=== PATIENT | male | born 1950 | race African-American/Black ===

== ENCOUNTER 2019-07-15 09:29 | Inpatient (IN) | payer OTHER ==
[2019-07-15 10:18] VITALS: BMI 39.7
[2019-07-15] MEDS ORDERED: D50W 25 GM/50 ML SYRINGE IV PRN (10:18)
[2019-07-15] MEDS ORDERED: GLUCAGON 1 MG/VIAL IM PRN (10:18)
[2019-07-15 10:56] LABS: Absolute Lymphocytes (CBC) 1.4 K/uL (0.7-4.9); Basophils % 1.2 % (0-1.3); Hematocrit 36.4 % (39.6-49.0); Lymphocytes % 23.8 % (15.3-44.8); RBC Red Blood Cell Count 4.54 M/uL (4.33-5.43)
[2019-07-15] MEDS ORDERED: VANCOMYCIN 2 GM in NA CHLORIDE 0.9% 500 ML IVPB ONE (11:00)
[2019-07-15 11:02] LABS: Urine Appearance CLEAR; Urine Bilirubin NEGATIVE (NEG); Urine Blood NEGATIVE (NEG); Urine Color YELLOW; Urine Glucose NEGATIVE (NEG); Urine Protein NEGATIVE (NEG); Urine Specific Gravity 1.015 (1.005-1.030); Urine pH 7.5 (5.0-7.0)
[2019-07-15 11:11] LABS: Albumin 3.6 g/dL (3.4-5.0); Bilirubin Total 0.6 mg/dL (0.2-1.0); Potassium 3.8 mmol/L (3.5-5.1); Protein, Total 7.4 g/dL (6.4-8.2)
[2019-07-15] MEDS: INSULIN -REGULAR HUMAN 50 UNIT/0.5 ML ML SQ SCH ×3 (11:16→21:00)
[2019-07-15 11:50] LABS: Urine Bacteria NONE SEEN /HPF (NONE SEEN); Urine Culture Reflex Order NOT NEEDED; Urine RBC NONE SEEN /HPF (NONE SEEN)
[2019-07-16] MEDS: VANCOMYCIN 2 GM in NA CHLORIDE 0.9% 500 ML IVPB SCH ×2 (04:04→23:12)
[2019-07-16] MEDS: INSULIN -REGULAR HUMAN 50 UNIT/0.5 ML ML SQ SCH ×4 (07:30→20:19)
[2019-07-16] MEDS: hydroCHLOROthiazide 25 MG TAB PO SCH (08:55)
[2019-07-16] MEDS: METFORMIN HCL 500 MG TAB PO SCH ×2 (08:56→16:52)
[2019-07-16] MEDS: AMLODIPINE 10 MG TAB PO SCH (08:56)
[2019-07-16] MEDS: VALSARTAN 160 MG TAB PO SCH (08:56)
[2019-07-16] MEDS: ENOXAPARIN 30 MG/0.3 ML SQ SCH (08:57)
[2019-07-16] MEDS ORDERED: HOME MED 1 EA UNK (Valsartan/Hydrochlorothiazide [Valsartan-Hctz 320-25 Mg Tab] 1 TAB) PO SCH (09:00)
--- NOTE | 2019-07-16 19:18 | HP ---
Date of Admission: 07/15/2019 Chief Complaint: Cellulitis, leg. History Of Present Illness: A 69-year-old male was seen last week in the office for cellulitis of th e leg. He was given oral antibiotic in the form of Bactrim. He returned few days later with continu ed pain. He was found to have extended cellulitis. In view of failure of oral antibiotic, patient w as advised IV antibiotics; however, he refused. However, he returned on the day of admission and cou ld not walk from parking lot to the office because of the pain and swelling. I examined him in the [employer] lot and he was found to have continued swelling and redness of the leg. At this point, patien t decided to get admitted and get IV antibiotic therapy. There is no history of injury to the leg. Past Medical History: Positive for type 2 diabetes, hypertension, osteoarthritis. Family History: Diabetes, hypertension present. Allergies: NONE. Personal History: Nonsmoker. Home Medicines: Amlodipine, glimepiride, Avapro, metformin, Zocor, Hytrin. Review of Systems: Patient denied any chest pain or shortness of breath. Physical Examination: General: Revealed 69-year-old male. Alert for his age. HEENT: Otherwise negative. Neck: Supple. JVD negative. Chest: Clear. Heart: Regular. Abdomen: Soft. Extremities: Diffuse swelling of the left leg starting from the ankle to the knee with redness and w armth. Pedal pulses decreased but present. Assessment: 1.Cellulitis, not responsive to oral antibiotics. 2.Type 2 diabetes. 3.Hypertension. 4.Hyperlipidemia. 5.Osteoarthritis. Plan: IV vancomycin after blood cultures and routine blood work. ROD/ILENE Voice ID: [id number]
[2019-07-16] MEDS ORDERED: ATORVASTATIN 20 MG TAB PO SCH (21:00)
[2019-07-17] MEDS: VALSARTAN 160 MG TAB PO SCH (09:31)
[2019-07-17] MEDS: hydroCHLOROthiazide 25 MG TAB PO SCH (09:31)
[2019-07-17] MEDS: ENOXAPARIN 30 MG/0.3 ML SQ SCH (09:32)
[2019-07-17] MEDS: AMLODIPINE 10 MG TAB PO SCH (09:32)
[2019-07-17] MEDS: METFORMIN HCL 500 MG TAB PO SCH ×2 (09:32→16:50)
[2019-07-17] MEDS: INSULIN -REGULAR HUMAN 50 UNIT/0.5 ML ML SQ SCH ×3 (09:33→16:30)
[2019-07-17 15:47] VITALS: O2SAT 94
[2019-07-17] MEDS: VANCOMYCIN 2 GM in NA CHLORIDE 0.9% 500 ML IVPB SCH (16:50)
[2019-07-17 18:11] VITALS: BP 170/93; TEMP 97.6
== END 2019-07-17 20:10 | disposition home or self-care (01) | DRG 603 ==
LOC: ERHOLD 09:29 → UNDOADMIN 09:29 → 2ND 09:37
PROVIDERS: ADMIT Internal Medicine; ATTEND Internal Medicine
DX: L03.116 Cellulitis of left lower limb (principal); E11.9 Type 2 diabetes mellitus without complications; I10 Essential (primary) hypertension; E78.5 Hyperlipidemia, unspecified; M19.90 Unspecified osteoarthritis, unspecified site
CPT/HCPCS: 36415; 80053; 80202; 81001; 82962; 85025; 87040; J1650; J7040

== ENCOUNTER 2019-09-16 12:00 | Inpatient (IN) | payer OTHER ==
[2019-09-16] MEDS ORDERED: FUROSEMIDE 20 MG/ 2ML VIAL IV ONE (13:01)
[2019-09-16] MEDS ORDERED: FUROSEMIDE 20 MG/ 2ML VIAL ONE (13:26)
[2019-09-16 13:46] LABS: Basophils % 1.2 % (0-1.3); Hematocrit 33.1 % (39.6-49.0); Lymphocytes % 16.1 % (15.3-44.8); MPV 7.9 fL (7.6-11.3); RBC Red Blood Cell Count 4.22 M/uL (4.33-5.43)
--- NOTE | 2019-09-16 14:04 | EKG ---
Test Date: 2019-09-16 Test Time: 12:53:32 Cream Dipper: DUTCH MEASUREMENT RESULTS: Intervals: Rate: 91 DC: 136 QRSD: 134 QT: 398 QTc: 489 Halliday: P: 75 DC: 136 QRS: 10 T: 74 INTERPRETIVE STATEMENTS: Normal sinus rhythm Right bundle branch block Abnormal ECG No previous ECG available for comparison Electronically Signed On 09-16-19 14:03:56 DUMP MOTORMAN by Perry Hughes
[2019-09-16 14:53] LABS: ALT/SGPT 39 U/L (12-78); AST/SGOT 21 U/L (15-37); Albumin 3.2 g/dL (3.4-5.0); Alkaline Phosphatase 86 U/L (45-117); BUN Blood Urea Nitrogen 12 mg/dL (7-18); Bicarbonate 35 mmol/L (21-32); Bilirubin Total 0.5 mg/dL (0.2-1.0); Glucose Level 80 mg/dL (74-106); NT PRO-BNP 261 pg/mL (<125); Potassium 3.6 mmol/L (3.5-5.1); Protein, Total 6.8 g/dL (6.4-8.2); Sodium Level 144 mmol/L (136-145)
--- NOTE | 2019-09-16 15:20 | RAD REPORT ---
EXAM DESCRIPTION: RAD - Chest Pa And Lat (2 Views) - 09/16/2019 2:52 pm CLINICAL HISTORY: CHF Chest pain. COMPARISON: No comparisons FINDINGS: Moderate bilateral pulmonary opacities are present with bilateral pleural effusions, most compatible with pulmonary edema. The heart is mildly to moderately enlarged. No displaced fractures. IMPRESSION: Moderate CHF versus volume overload pattern.
--- NOTE | 2019-09-16 16:05 | ER ---
Nurse's Notes [facility] Name: Iam Lucio Jr Age: 69 yrs Sex: Male : 1950 Arrival Date: 09/16/2019 Time: 12:02 Bed Direct Admit Private MD: Giancarlo Segundo R Diagnosis: Heart failure Presentation: 09/16 12:29 Presenting complaint: Patient states: "If I walk about 10 feet I get out of breath real aj1 quick, it started about 5 or 6 days ago" Denies pain. Denies increased swelling to extremities. Patient was sent for direct admission by Dr. Segundo. Transition of care: patient was not received from another setting of care. Onset of symptoms was 2018. Risk Assessment: Do you want to hurt yourself or someone else? Patient reports no desire to harm self or others. Initial Sepsis Screen: Does the patient meet any 2 criteria? HR > 90 bpm. No. Patient's initial sepsis screen is negative. Does the patient have a suspected source of infection? Yes: Productive cough/pneumonia. Care prior to arrival: None. 12:29 Method Of Arrival: Wheelchair aj1 12:29 Acuity: AMELIA 2 aj1 Triage Assessment: 12:31 General: Appears in no apparent distress. uncomfortable, Behavior is calm, cooperative, aj1 appropriate for age. Pain: Denies pain. Neuro: Level of Consciousness is awake, alert, obeys commands. Cardiovascular: Patient's skin is warm and dry. Respiratory: Reports shortness of breath on exertion Airway is patent Respiratory effort is even, unlabored, Respiratory pattern is regular, symmetrical. Historical: - Allergies: 12:31 No Known Allergies; aj1 - PMHx: 12:31 Diabetes - NIDDM; Hypertension; aj1 - Social history:: Smoking status: Patient uses tobacco products, denies chronic smoking, but will smoke occasionally. - Ebola Screening: : Patient denies travel to an Ebola-affected area in the 21 days before illness onset. Vital Signs: 12:31 BP 150 / 82; Pulse 96; Resp 20; Temp 98.8; Pulse Ox 86% on R/A; Weight 118.39 kg (R); aj1 Height 5 ft. 7 in. (170.18 cm) (R); Pain 0/10; 12:31 Body Mass Index 40.88 (118.39 kg, 170.18 cm) aj1 ED Course: 12:02 Patient arrived in ED. as 12:04 Giancarlo Segundo MD is Private Physician. as 12:30 Triage completed. aj1 12:31 Arm band placed on Patient placed in an exam room. aj1 12:59 EKG done, by i&c technician. reviewed by Jerrod Tompkins MD. tc 14:28 Moon Roberts, RN is Primary Nurse. vc 16:03 Giancarlo Segundo MD is Hospitalizing Provider. ss Administered Medications: No medications were administered Outcome: 16:05 Decision to Hospitalize by Provider. ss 17:36 Patient left the ED. vc Signatures: Mariana Martin, RN RN aj1 Hilda Ferguson Shelby, GUS RN Lolis Gavin, disc pad grinder EKG Ttc Moon Roberts, GUS RN vc
[2019-09-16 16:44] LABS: Urine Blood NEGATIVE (NEG); Urine Glucose NEGATIVE (NEG); Urine Protein 1+ (NEG); Urine pH 5.5 (5.0-7.0)
[2019-09-16] MEDS ORDERED: D50W 25 GM/50 ML SYRINGE/VIAL IV PRN (18:46)
[2019-09-16] MEDS ORDERED: GLUCAGON 1 MG/VIAL IM PRN (18:46)
[2019-09-16] MEDS: INSULIN -REGULAR HUMAN 50 UNIT/0.5 ML ML SQ SCH (20:51)
[2019-09-16] MEDS: TERAZOSIN HCL 5 MG CAP PO SCH (21:52)
[2019-09-16] MEDS: HYDRALAZINE HCL 25 MG TABLET PO SCH (21:52)
[2019-09-16] MEDS: ATORVASTATIN 20 MG TAB PO SCH (21:52)
[2019-09-16] MEDS ORDERED: FUROSEMIDE 40 MG/4 ML VIAL IV STA (21:59)
[2019-09-17] MEDS ORDERED: ALBUTEROL 2.5 MG/3 ML NEB SOL NEB ONE (01:56)
[2019-09-17] MEDS ORDERED: ALBUTEROL 2.5 MG/3 ML NEB SOL ONE (02:07)
[2019-09-17] MEDS: INSULIN -REGULAR HUMAN 50 UNIT/0.5 ML ML SQ SCH ×4 (07:30→21:00)
[2019-09-17 08:06] LABS: Absolute Lymphocytes (CBC) 0.5 K/uL (0.7-4.9); Basophils % 0.4 % (0-1.3); Hematocrit 35.6 % (39.6-49.0); Lymphocytes % 5.5 % (15.3-44.8); MPV 7.6 fL (7.6-11.3)
[2019-09-17 08:19] LABS: BUN Blood Urea Nitrogen 15 mg/dL (7-18); Bicarbonate 39 mmol/L (21-32); Glucose Level 157 mg/dL (74-106); Potassium 3.8 mmol/L (3.5-5.1); Sodium Level 145 mmol/L (136-145)
--- NOTE | 2019-09-17 08:39 | P.CNS ---
Date of Consult: 09/17/19 Reason for Consult: Respiratory failure Chief Complaint: Shortness of breath History of Present Illness: Patient is [age] years of age admitted with shortness of breath which the preceding four days. The is currently on a BiPAP. History obatained from . At bedside. Pt hypercapneic. Poss underlying [place]. EDs and snoring. No cardiac history the patient was transferred from the floor got some Lasix Allergies No Known Allergies Allergy (Unverified 07/15/19 09:55) Home Medications: Amlodipine [Norvasc] 10 mg PO DAILY 09/16/19 Furosemide [Lasix] 20 mg PO DAILY 09/16/19 Glimepiride [Amaryl] 2 mg PO TID 09/16/19 Hydralazine [Apresoline] 25 mg PO BID 09/16/19 Irbesartan [Avapro] 300 mg PO DAILY 09/16/19 Metformin ER [Glucophage ER] 1,000 mg PO BID 09/16/19 Simvastatin 40 mg PO BEDTIME 09/16/19 Terazosin HCl 5 mg PO BEDTIME 09/16/19 - Past Medical/Surgical History Diabetic: Yes -: Hypertension -: NIDDM - Social History Smoking Status: Current some day smoker Alcohol use: No CD- Drugs: No Caffeine use: Yes Place of Residence: Home Review of Systems is unable to be obtained Physical Examination Temp Pulse Resp BP Pulse Ox 99.2 F 101 H 38 H 144/70 H 91 09/17/19 05:00 09/17/19 06:00 09/17/19 06:00 09/17/19 06:00 09/17/19 06:00 General: Unresponsive Respiratory: Expiratory wheezes Cardiovascular: Normal S1 S2, Edema Gastrointestinal: Normal bowel sounds, Soft and benign Musculoskeletal: No clubbing Laboratory Data (last 24 hrs) 09/17/19 07:45: Sodium 145, Potassium 3.8, BUN 15, Creatinine 0.90, Glucose 157 H 09/17/19 07:45: WBC 9.8 D, Hgb 11.0 L, Hct 35.6 L, Plt Count 306 09/16/19 14:12: Troponin I < 0.02 09/16/19 14:12: Sodium 144, Potassium 3.6, BUN 12, Creatinine 0.84, Glucose 80, Total Bilirubin 0.5, AST 21, ALT 39, Alkaline Phosphatase 86 09/16/19 13:26: WBC 6.5, Hgb 10.9 L, Hct 33.1 L, Plt Count 316 - Problems (1) Respiratory failure Current Visit: Yes Status: Acute Plan: Patient is 69 years of age with a history of diabetes hypertension and transferred to the ICU with respiratory failure I suspect acute on chronic history of heavy tobacco abuse in the past suspect that he has got underlying obstructive airways disease in addition to sleep apnea chest x-ray shows some bilateral haziness may have some diastolic dysfunction labs all reviewed is minimally anemic continue with BiPAP echocardiogram is pending urinalysis is negative ordered some blood cultures patient has cardiomegaly bilateral interstitial changes also added some bronchodilators and steroids titrate sat to 90% Qualifiers: Respiratory failure complication: hypoxia and hypercapnia
--- NOTE | 2019-09-17 08:51 | RAD REPORT ---
EXAM DESCRIPTION: RAD - Chest Single View - 09/17/2019 8:44 am CLINICAL HISTORY: CHF COMPARISON: September 16 TECHNIQUE: AP portable chest image was obtained 0832 hours . FINDINGS: Substantially increased opacification is occurred in the left hemithorax. This could be fr om alveolar edema, alveolar infiltrate, pleural effusion or a combination. Linear opacification in th e right midlung field could be right upper lobe atelectasis or fluid along the minor fissure. Bilater al costophrenic angle blunting is present. Cardiomegaly is present similar to comparison. No pneumoth orax. No acute aortic findings suspected. IMPRESSION: Substantially increased opacification over the left hemithorax. Left lung field finding is likely a combination of alveolar opacification from edema or infiltrate al jerry with pleural fluid. Linear opacification in the right midlung field could be right upper lobe atelectasis or fluid on the minor fissure.
[2019-09-17] MEDS: HYDRALAZINE HCL 25 MG TABLET PO SCH ×3 (09:00→20:35)
[2019-09-17] MEDS: IRBESARTAN 150 MG TAB PO SCH ×2 (09:00)
[2019-09-17] MEDS: FORMOTEROL FUMARATE 20 MCG/2 ML VIAL.NEB IH SCH ×2 (09:56→20:20)
[2019-09-17] MEDS: METHYLPREDNISOLONE 40 MG INJ IV SCH ×2 (09:58→17:27)
[2019-09-17] MEDS ORDERED: HYDRALAZINE HCL 20 MG/ML VIAL IV PRN (10:17)
[2019-09-17 10:35] LABS: Arterial Blood Carboxyhemoglob 1.3 % (0-1.5); Blood Gas Oxyhemoglobin 90.4 % (94-97); Blood O2 Saturation 92.5 % (92-98.5)
[2019-09-17 13:14] LABS: Arterial Blood Carboxyhemoglob 0.6 % (0-1.5); Blood Gas Oxyhemoglobin 94.5 % (94-97); Blood O2 Saturation 96.2 % (92-98.5)
--- NOTE | 2019-09-17 13:15 | ECHO ---
HEIGHT: 5 ft 8 in WEIGHT: 258 lb 0 oz DATE OF STUDY: 09/17/[address]: Giancarlo Segundo MD 2-DIMENSIONAL: YES M.MODE: YES DOPPLER: YES COLOR FLOW: YES TDS: NO PORTABLE: NO DEFINITY: NO BUBBLE STUDY: NO DIAGNOSIS: CONGESTIVE HEART FAILURE CARDIAC HISTORY: CATHERIZATION: NO SURGERY: NO PROSTHETIC VALVE: NO PACEMAKER: NO MEASUREMENTS (cm) DIASTOLIC (NORMALS) SYSTOLIC (NORMALS) IVSd 1.4 (0.6-1.2) LA Diam 3.7 (1.9-4.0) LVEF 58% LVIDd 4.9 (3.5-5.7) LVIDs 3.4 (2.0-3.5) %FS 31% LVPWd 1.4 (0.6-1.2) Ao Diam 3.3 (2.0-3.7) 2 DIMENSIONAL ASSESSMENT: RIGHT ATRIUM: NORMAL LEFT ATRIUM: NORMAL RIGHT VENTRICLE: NORMAL LEFT VENTRICLE: LEFT VENTRICULAR HYPERTROPHY TRICUSPID VALVE: NORMAL MITRAL VALVE: NORMAL PULMONIC VALVE: NORMAL AORTIC VALVE: NORMAL PERICARDIAL EFFUSION: NONE AORTIC ROOT: NORMAL LEFT VENTRICULAR WALL MOTION: NORMAL. DOPPLER/COLOR FLOW: NORMAL. COMMENTS: TRACE OF PERICARDIAL EFFUSION. NORMAL LEFT VENTRICULAR SIZE AND FUNCTION. NO WALL MOTION ABNORMALITY. TECHNOLOGIST: JOHANNA RODRIGUEZ
[2019-09-17] MEDS ORDERED: FUROSEMIDE 40 MG/4 ML VIAL IV ONE (14:28)
--- NOTE | 2019-09-17 14:53 | CON ---
Date of Consultation: 09/17/2019 Reason For Consultation: Congestive heart failure. History Of Present Illness: Mr. Lucio is a 69-year-old black male, has a history of severe hyperten vianey, dyslipidemia, diabetes, benign prostatic hypertrophy, never had any congestive heart failure in the past, but came in with approximately 2 weeks of dyspnea on exertion, PND, orthopnea, pedal edema , was seen by Dr. Segundo in his office and was sent to the emergency room directly. Denied any chest pain, nausea, vomiting, diaphoresis. Denied any palpitation or syncope. Denied any fever or chills. Allergies: NONE. Review of Systems: Negative. Social History: Negative. Family History: Negative. Medications: At home include Hytrin, Norvasc, metformin, Zocor, Lasix, Amaryl, Avapro and hydralazin e. Physical Examination: Vital Signs: His initial blood pressure was 183/93. He weighed 266 pounds. Vital signs were stable , afebrile, in sinus rhythm with occasional PACs. HEENT: Negative. Neck: Supple without any bruit, lymphadenopathy. He did have 4 cm JVD to the angle of the jaw. Chest: Reveals some rales, both bases. Cardiac: Revealed a regular rhythm and rate with an S4 gallop. No murmurs or rubs. Abdomen: Obese. Extremities: Revealed no clubbing, cyanosis. He had 2 to 3+ edema and chronic venous insufficiency. Skin: Dry and intact. Pulses were weak distally bilaterally. Neurologic: Seems to be nonfocal. Diagnostic Data: Hemoglobin was 10.1. His BNP was 261. Creatinine was normal. EKG showed right bu ndle-branch block. Chest x-ray showed volume overload or congestive heart failure. Impression And Plan: 1.I think the most likely diagnosis is acute diastolic congestive heart failure. I agree with his p resent regimen. He did not respond very well to Lasix. He is now in the ICU. Echocardiogram is pen ding. Continue present management for now. I agree with pulmonary consultation. He will eventually need an outpatient stress test to make sure we are not dealing with any coronary artery disease issu e. I will have to wait until he improves. He can do that as an outpatient. 2.Right bundle-branch block. 3.Morbid obesity. 4.Hypertension, poorly controlled. 5.Anemia. 6.Diabetes. 7.Benign prostatic hypertrophy. We will continue present regimen, see what the echo shows, diurese. Agree with pulmonary consultation. We will continue to follow. Case was discussed with Dr. Segundo. BRITTA/ILENE Voice ID: [id number] Report ID: [id number]
--- NOTE | 2019-09-17 19:59 | HP ---
Date of Admission: 09/17/2019 Chief Complaint: Dyspnea. History Of Present Illness: A 69-year-old male was brought to the office with history of progressive dyspnea few days' duration. Patient denied any history of fever, chest pain. Patient was examined in the office. He had crackles at both bases with a diagnosis of congestive heart failure. Patient was admitted for observation. Subsequently, patient received IV Lasix. However, he has still hypoxi a, in view of that patient is transferred to ICU. Past Medical History: Positive for hypertension, diabetes, and hyperlipidemia. Family History: Diabetes and hypertension present. Personal History: Currently, nonsmoker. Home Medicines: Please refer to the chart. Allergies: PATIENT HAS ALLERGY TO CODEINE, LEVAQUIN, AND PENICILLINS. Review of Systems: Patient denied any nausea, vomiting, fever, chills. Physical Examination: General: Revealed 69-year-old male. Vital Signs: Blood pressure 159/80. Temperature normal. HEENT: Congested throat, otherwise negative. Neck: Supple. JVD negative. Chest: Bilateral basal crackles. Heart: Regular. Abdomen: Pendulous, nontender. Extremities: Mild pedal edema. Laboratory Data: White count normal. Chem profile done showed normal kidney function. BNP elevated to 261. Troponin normal. Chest x-ray, pulmonary edema. Assessment: 1.Congestive heart failure. 2.Type 2 diabetes. 3.Hypertension. 4.Obesity. Plan: In view of patient's hypoxia, Pulmonary consultation has been done in addition to Cardiology c onsultation to see if there is any alternative way of explaining his respiratory failure. Patient me jones is started on a schedule of insulin coverage for his blood sugars. ROD/ILENE Voice ID: [id number]
[2019-09-17] MEDS: ATORVASTATIN 20 MG TAB PO SCH (20:35)
[2019-09-17] MEDS: TERAZOSIN HCL 5 MG CAP PO SCH (20:35)
[2019-09-18] MEDS: METHYLPREDNISOLONE 40 MG INJ IV SCH (00:55)
--- NOTE | 2019-09-18 08:20 | P.PN ---
Subjective Date of Service: 09/18/19 Chief Complaint: Respiratory failure Subjective: Improving (Patient is doing much better he is more alert responsive cooperative and was on nasal cannula oxygen) Review of Systems General: Weakness Respiratory: Shortness of Breath Physical Examination - Vital Signs Temperature: 98.4 F Blood Pressure: 116/64 Pulse: 101 Respirations: 14 Pulse Ox (%): 98 - Physical Exam General: Alert, In no apparent distress, Oriented x3 Respiratory: Diminished, Expiratory wheezes Cardiovascular: Normal S1 S2, Edema - Studies Laboratory Data (last 24 hrs) 09/17/19 07:45: Sodium 145, Potassium 3.8, BUN 15, Creatinine 0.90, Glucose 157 H Assessment & Plan - Problems (Diagnosis) (1) Respiratory failure Current Visit: Yes Status: Acute Plan: Patient admitted with acute on chronic respiratory failure presume combination of COPD and sleep apnea. Echocardiogram is normal possible underlying diastolic dysfunction at spironolactone small doses of Lasix Dc Bahena catheter afterwards schedule change to prednisone Dc Solu-Medrol labs reviewed transfer to the floor ambulate he will need outpatient pulmonary function testing and a sleep study Qualifiers: Respiratory failure complication: hypoxia and hypercapnia
[2019-09-18] MEDS: IRBESARTAN 150 MG TAB PO SCH (09:00)
[2019-09-18] MEDS: INSULIN -REGULAR HUMAN 50 UNIT/0.5 ML ML SQ SCH ×4 (09:15→20:20)
[2019-09-18] MEDS: HYDRALAZINE HCL 25 MG TABLET PO SCH ×2 (09:15→20:19)
[2019-09-18] MEDS: predniSONE 20 MG TAB PO SCH ×2 (09:15→20:19)
[2019-09-18] MEDS: FUROSEMIDE 20 MG TABLET PO SCH (09:16)
[2019-09-18] MEDS: SPIRONOLACTONE 25 MG TABLET PO SCH ×2 (09:16→20:19)
[2019-09-18] MEDS: IPRATROPIUM BROM 0.5MG/2.5ML NEB SCH ×3 (09:45→19:58)
[2019-09-18] MEDS: FORMOTEROL FUMARATE 20 MCG/2 ML VIAL.NEB IH SCH ×2 (09:45→20:00)
--- NOTE | 2019-09-18 10:06 | RAD REPORT ---
EXAM DESCRIPTION: [place] Single View09/18/2019 9:55 am CLINICAL HISTORY: Shortness of breath COMPARISON: September 17, 2019 FINDINGS: The left pleural effusion has decreased in size and is probably small to moderate. Small r ight pleural effusion is suspected. Mild bilateral interstitial lung opacities probably interstitial pulmonary edema The heart remains enlarged
[2019-09-18 10:42] LABS: Arterial Blood Carboxyhemoglob 1.1 % (0-1.5)
--- NOTE | 2019-09-18 19:01 | PN ---
Mr. Lucio has had diuresis and seems to be doing much better. He feels well. His echocardiogram sh ows left ventricular hypertrophy. Normal ejection fraction, so his congestive heart failure is left ventricular diastolic. There is a trace pericardial effusion. This is commonly seen when there is s evere LVH. I do not suspect an inflammatory process. He seems to have a lot of questions about what kind of diet to follow with his diabetes and heart failure. He is going to have to sit down with [facility] dietitian and carefully outline some guidelines on how just keep on a 2 g sodium diet. We will sti ll control his diabetes. I think he is stable enough to be transferred to a regular bed and get out of ICU. SH/MODL Voice ID: [id number] Report ID: [id number]
[2019-09-18] MEDS: ATORVASTATIN 20 MG TAB PO SCH (20:19)
[2019-09-18] MEDS: TERAZOSIN HCL 5 MG CAP PO SCH (20:19)
--- NOTE | 2019-09-18 23:13 | PN ---
The patient is more alert today. His O2 saturations have improved. His mentation is clear. The pat ient has bilateral crackles and wheezes. In view of improvement, the patient will be transferred to the floor and continued management of his respiratory failure. RRK/MODL Voice ID: [id number] Report ID: [id number]
[2019-09-19] MEDS: IPRATROPIUM BROM 0.5MG/2.5ML NEB SCH ×4 (02:10→19:24)
[2019-09-19 05:56] VITALS: BMI 37.4
[2019-09-19] MEDS: INSULIN -REGULAR HUMAN 50 UNIT/0.5 ML ML SQ SCH ×4 (07:30→20:53)
[2019-09-19] MEDS: FORMOTEROL FUMARATE 20 MCG/2 ML VIAL.NEB IH SCH ×2 (08:08→19:24)
--- NOTE | 2019-09-19 08:26 | RAD REPORT ---
EXAM DESCRIPTION: RAD - Chest Single View - 09/19/2019 7:11 am CLINICAL HISTORY: CHF? Chest pain. COMPARISON: Chest Single View dated 09/18/2019; Chest Single View dated 09/17/2019; Chest Pa And Lat (2 Views) dated 09/16/2019 FINDINGS: Portable technique limits examination quality. Mild worsening in bilateral pulmonary opacities are noted since the comparative study, likely represe nting pulmonary edema. The heart is moderately enlarged in size. No displaced fractures. IMPRESSION: Mild worsening in CHF is suspected since the comparative study.
--- NOTE | 2019-09-19 08:38 | P.PN ---
Subjective Date of Service: 09/19/19 Chief Complaint: Respiratory failure Subjective: Improving (Patient is doing much better wants to go home) Review of Systems General: Weakness Respiratory: Shortness of Breath Physical Examination - Vital Signs Temperature: 98.0 F Blood Pressure: 158/80 Pulse: 80 Respirations: 18 Pulse Ox (%): 97 - Physical Exam General: Alert, In no apparent distress, Oriented x3 Respiratory: Clear to auscultation bilaterally, Diminished Cardiovascular: No edema, Regular rate/rhythm Assessment & Plan - Problems (Diagnosis) (1) Respiratory failure Current Visit: Yes Status: Acute Plan: Patient admitted with respiratory failure he is doing much better is probably a combination of COPD and sleep apnea I have ordered another chemistries today possible discharge home on bronchodilators and low-dose steroids the need outpatient sleep study will evaluate for a home oxygen and nebulizer Qualifiers: Respiratory failure complication: hypoxia and hypercapnia
[2019-09-19] MEDS: predniSONE 20 MG TAB PO SCH ×2 (08:46→20:54)
[2019-09-19] MEDS: IRBESARTAN 150 MG TAB PO SCH (08:46)
[2019-09-19] MEDS: HYDRALAZINE HCL 25 MG TABLET PO SCH ×2 (08:46→20:54)
[2019-09-19] MEDS: SPIRONOLACTONE 25 MG TABLET PO SCH ×2 (08:47→20:53)
[2019-09-19] MEDS: FUROSEMIDE 20 MG TABLET PO SCH (08:47)
[2019-09-19 09:26] LABS: BUN Blood Urea Nitrogen 37 mg/dL (7-18); Bicarbonate 39 mmol/L (21-32); Glucose Level 156 mg/dL (74-106); Potassium 4.1 mmol/L (3.5-5.1); Sodium Level 142 mmol/L (136-145)
[2019-09-19] MEDS: ATORVASTATIN 20 MG TAB PO SCH (20:53)
[2019-09-19] MEDS: TERAZOSIN HCL 5 MG CAP PO SCH (20:54)
--- NOTE | 2019-09-19 21:56 | PN ---
Patient is doing very well, fully alert and he has mild wheezing bilaterally. He is tolerating the d iet. I spoke to Dr. Monsivais. Discharge plans are in progress. ROD/ILENE Voice ID: [id number] Report ID: [id number]
--- NOTE | 2019-09-20 00:10 | PN ---
Date of Progress Note: 09/19/2019 History: Mr. Lucio was admitted by Dr. Segundo on 09/17/2019, and was seen by me for acute diastolic congestive heart failure. Patient's echocardiogram proved that he had diastolic dysfunction with normal ejection fraction and c ongestive heart failure. He has been diuresed. He remains on BiPAP, but he has improved dramaticall y. Physical Examination: Vital Signs: His vital signs are stable. He is in normal rhythm. Chest: His chest revealed no rales. Lower Extremities: Shows chronic venous insufficiency and about 1+ edema. Plan: I would continue diuresis, salt restriction. This is really the mainstay of therapy for diast olic congestive heart failure. We need to control his blood pressure. From our standpoint, he can g o home whenever it is okay with Dr. Segundo. I will set him up as an outpatient for an outpatient Elaine scan and an appointment. BRITTA/ILENE Voice ID: [id number] Report ID: [id number]
[2019-09-20] MEDS: IPRATROPIUM BROM 0.5MG/2.5ML NEB SCH ×2 (01:50→08:35)
[2019-09-20] MEDS: INSULIN -REGULAR HUMAN 50 UNIT/0.5 ML ML SQ SCH (07:30)
[2019-09-20] MEDS: FORMOTEROL FUMARATE 20 MCG/2 ML VIAL.NEB IH SCH (08:35)
[2019-09-20 09:30] VITALS: O2SAT 95
[2019-09-20] MEDS: SPIRONOLACTONE 25 MG TABLET PO SCH (09:39)
[2019-09-20] MEDS: IRBESARTAN 150 MG TAB PO SCH (09:39)
[2019-09-20] MEDS: predniSONE 20 MG TAB PO SCH (09:40)
[2019-09-20] MEDS: FUROSEMIDE 20 MG TABLET PO SCH (09:40)
[2019-09-20] MEDS: HYDRALAZINE HCL 25 MG TABLET PO SCH (09:40)
[2019-09-20 11:58] VITALS: BP 152/83; TEMP 97.9
== END 2019-09-20 12:21 | disposition home or self-care (01) | DRG 291 ==
LOC: EDSTATUS 12:00 → ER 12:00 → ERHOLD 12:02 → 4TH 16:46 → 3RD-ICU 09-17 02:15 → OBSVTOIN 09-17 08:04 → 4TH 09-18 12:15
PROVIDERS: ADMIT Internal Medicine; ATTEND Internal Medicine
DX: I11.0 Hypertensive heart disease with heart failure (principal); I50.31 Acute diastolic (congestive) heart failure; J96.02 Acute respiratory failure with hypercapnia; J96.01 Acute respiratory failure with hypoxia; E11.9 Type 2 diabetes mellitus without complications; E66.9 Obesity, unspecified; Z68.38 Body mass index [BMI] 38.0-38.9, adult; E78.5 Hyperlipidemia, unspecified; I45.10 Unspecified right bundle-branch block; E66.01 Morbid (severe) obesity due to excess calories; N40.0 Benign prostatic hyperplasia without lower urinary tract symptoms
CPT/HCPCS: 36415; 71045; 71046; 80048; 80053; 81003; 82805; 82947; 83880; 84484; 85025; 87040; 93005; 93306; 94640; 94660; 99281; G0378; G0379; J1940; J2920; J7512